=== PATIENT | male | born 1990 | race Caucasian/White ===

== ENCOUNTER 2017-10-28 03:45 | Emergency (ER) | payer OTHER ==
[~2017-10-28] VITALS: Ht 175.3 cm; Wt 97.6 kg
[~2017-10-28 03:45] MED LIST: AMOXICILLIN875 MG PO; APIDRA100 UNIT/1 SC; BACTRIM,SEPT1 TABLET PO; Ceftin PO; Cymbalta PO; HUMALOG (UNIT)1 UNIT IV; LANTUS (UNITS)1 UNIT IV; NORCO 7.5/321 TABLET PO
[2017-10-28 04:42] LABS: HEMATOCRIT 45.3 % (38.0-50.0); MCH 28.5 PG (29.0-34.0); MCV 83.7 FL (86-99); MEAN PLAT.VOLUME 12.2 uM^3 (9.0-12.4); PLATELET COUNT 279 K/uL (156-360); RBC DIS.WIDTH-CV 12.4 % (11.8-14.6); RBC DIS.WIDTH-SD 37.4 % (39-53); RED BLOOD COUNT 5.41 M/uL (4.00-5.50); WHITE BLOOD COUNT 12.1 K/uL (4.1-10.2)
[2017-10-28 05:04] LABS: CHLORIDE 102 mEq/L (99-109); SODIUM 140 mEq/L (136-147)
[2017-10-28 05:05] LABS: GLUCOSE 306 mg/dL (70-99)
[2017-10-28 05:07] LABS: ANION GAP 15 MEQ/L (2-14)
[2017-10-28 05:09] LABS: GFR ESTIMATE (CALCULATED) > 59 mL/min/; SERUM ETHYL ALCOHOL 145 mg/dL
[2017-10-28 05:10] LABS: UREA NITROGEN (BUN) 12 mg/dL (9-23)
[2017-10-28 06:10] VITALS: BP 142/94
== END 2017-10-28 06:13 | disposition home or self-care (01) ==
LOC: EME → EDBD 03:45 → EME 06:13
PROVIDERS: Emergency Medicine
DX: F10.129 Alcohol abuse with intoxication, unspecified (principal); E11.65 Type 2 diabetes mellitus with hyperglycemia; Y90.6 Blood alcohol level of 120-199 mg/100 ml; Z96.41 Presence of insulin pump (external) (internal); Z79.4 Long term (current) use of insulin; Z88.8 Allergy status to other drugs, medicaments and biological substances
CPT/HCPCS: 80048; 85027; 99281; 99284; G0480